=== PATIENT | female | born 1990 | race Caucasian/White ===

== ENCOUNTER 2019-07-15 14:50 | Emergency (ER) | payer OTHER ==
[~2019-07-15] VITALS: Ht 175.3 cm; Wt 147.4 kg
[~2019-07-15 14:50] MED LIST: ALBUTEROL SULF8.5 GM; ALBUTEROL SULF8.5 GM INH; BACTRIM DS TAB1 EACH PO; CIPRO500 MG PO; CIPROFLOXACIN250 MG PO; FLOMAX0.4 MG PO; GUAIATUSSIN AC10 ML PO; GUAIFENESIN-CO118 ML PO; KEFLEX500 MG PO; MACROBID 100 M100 MG PO; MEDROXYPROGESTE10 MG PO; NAPROSYN500 MG PO; NAPROXEN500 MG PO; NORCO 5-325 TA1 EACH PO; PROMETHAZI6.25 MG/5 PO; PSEUDOEPHEDRINE60 MG PO; ZOFRAN ODT4 MG PO; ZOFRAN ODT4 MG SL; ZOFRAN ODT8 MG PO; ZOFRAN ODT8 MG SL; ZOFRAN4 MG PO
--- OUTSIDE RECORDS SUMMARY | 2019-07-15 14:54 | XMS ---
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 Cathy VISIT COUNT (12 MO.) 1 [place] [address] PA[address] [place] TOTAL 2 NOTE: Visits indicate total known visits. ED/UCC VISIT TRACKING (12 MO.) 07/15/2019 14:51 [facility] [place] TYPE: Emergency COMPLAINT: - ABDOMINAL PAIN 06/08/2019 13:48 [facility] [place] TYPE: Emergency DIAGNOSES: - Urinary tract infection, site not specified - ill - Noninfective gastroenteritis and colitis, unspecified INPATIENT VISIT TRACKING (12 MO.) No inpatient visits to display in this time frame [email or web address]
== END 2019-07-15 16:56 | disposition home or self-care (01) ==
LOC: ED 14:50
DX: N93.9 Abnormal uterine and vaginal bleeding, unspecified (principal); Z87.891 Personal history of nicotine dependence; Z91.041 Radiographic dye allergy status
CPT/HCPCS: 84703; 85025; 99284

== ENCOUNTER 2019-09-21 14:11 | Emergency (ER) | payer SELFPAY ==
[~2019-09-21] VITALS: Ht 175.3 cm; Wt 147.4 kg
--- OUTSIDE RECORDS SUMMARY | 2019-09-21 14:14 | XMS ---
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 Cathy VISIT COUNT (12 MO.) [place] [address] PA[address] [place]e TOTAL 3 NOTE: Visits indicate total known visits. ED/UCC VISIT TRACKING (12 MO.) 09/21/2019 14:12 [facility] [place] TYPE: Emergency COMPLAINT: - VAGINAL BLEEDING 07/15/2019 14:51 [facility] [place] TYPE: Emergency COMPLAINT: - ABDOMINAL PAIN DIAGNOSES: - Abnormal uterine and vaginal bleeding, unspecified - Personal history of nicotine dependence - Radiographic dye allergy status 06/08/2019 13:48 [facility] [place] TYPE: Emergency DIAGNOSES: - Urinary tract infection, site not specified - ill - Noninfective gastroenteritis and colitis, unspecified INPATIENT VISIT TRACKING (12 MO.) No inpatient visits to display in this time frame [id number]
== END 2019-09-21 17:32 | disposition home or self-care (01) ==
LOC: ED 14:11
DX: N92.1 Excessive and frequent menstruation with irregular cycle (principal); J45.909 Unspecified asthma, uncomplicated; Z91.041 Radiographic dye allergy status; Z79.899 Other long term (current) drug therapy
CPT/HCPCS: 36415; 80053; 84703; 85025; 99284

== ENCOUNTER 2019-11-13 18:51 | Emergency (ER) | payer SELFPAY ==
[~2019-11-13] VITALS: Ht 175.3 cm; Wt 133.8 kg
--- OUTSIDE RECORDS SUMMARY | 2019-11-13 18:54 | XMS ---
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 ERommel VISIT COUNT (12 MO.) [address] [place] [address] [facility] TOTAL 4 NOTE: Visits indicate total known visits. 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 [place] TYPE: Emergency COMPLAINT: - ABDOMINAL PAIN DIAGNOSES: - Abnormal uterine and vaginal bleeding, unspecified - Personal history of nicotine dependence - Radiographic dye allergy status 06/08/2019 13:48 [facility] [place] TYPE: Emergency DIAGNOSES: - Urinary tract infection, site not specified - ill - Noninfective gastroenteritis and colitis, unspecified INPATIENT VISIT TRACKING (12 MO.) No inpatient visits to display in this time frame [id number]
[2019-11-13] MEDS ORDERED: DICLOFENAC SODI75 MG PO (19:39)
[2019-11-13] MEDS ORDERED: CYCLOBENZAPRINE10 MG PO (19:39)
== END 2019-11-13 19:50 | disposition home or self-care (01) ==
LOC: ED 18:51
DX: S30.0XXA Contusion of lower back and pelvis, initial encounter (principal); W18.30XA Fall on same level, unspecified, initial encounter; J45.909 Unspecified asthma, uncomplicated; F41.9 Anxiety disorder, unspecified; F17.200 Nicotine dependence, unspecified, uncomplicated; Z91.041 Radiographic dye allergy status
CPT/HCPCS: 99283